=== PATIENT | female | born 1965 | race Caucasian/White ===

== ENCOUNTER → 2018-04-18 12:31 | Outpatient (CLI) | payer BC ==
[~2018-04-18 12:31] MED LIST: AMBIEN10 MG PO; LISINOP/HCTZ TAB 20-; XANAX1 MG PO
[2018-04-20 08:19] VITALS: BMI 28.5
== END | disposition home or self-care (01) ==
LOC: D.CT 12:31
DX: I71.2 Thoracic aortic aneurysm, without rupture (principal)

== ENCOUNTER 2018-04-20 07:22 | Outpatient (CLI) | payer BC ==
[~2018-04-20] VITALS: Ht 152.4 cm; Wt 66.4 kg
--- NOTE | ~2018-04-20 | EC ---
PATIENT:VARUN CHAVES DATE OF SERVICE: 04/20/18 SEX: F MEDICAL RECORD: [id number] DATE OF : 69 LOCATION:D.CAT AGE OF PATIENT: 52 ADMISSION DATE: 04/20/18 REFERRING PHYSICIAN: INTERPRETING PHYSICIAN: MANDEEP REEDER MD ECHOCARDIOGRAM REPORT ECHO CHARGES 4 ECHO COMPLETE Date: 04/20/18 CLINICAL DIAGNOSIS: ANGINA ECHOCARDIOGRAPHIC MEASUREMENTS (adult normal given) AC root (d.<3.7cm) 3.2 cm LV Septum d (<1.2 cm> 1.2 cm Valve Excursion 1.9 cm LV Septum (systole) 1.9 cm Left Atria (s.<4.0cm> 3.2 cm LVPW d(<1.2cm) 1.0 cm RV (d.<2.3cm) 2.4 cm LVPW (sytole) 1.9 cm LV diastole(<5.6CM) 4.5 cm MV E-F(>70mm/sec) cm LV systole 2.4 cm LVOT Diameter 1.7 cm MV exc.(>10mm) cm Est.ejection fraction (50-75%) % DOPPLER: LVIT cm/sec A 39.0 cm/sec E 51.0 cm/sec LA cm/sec RVSP 32.0 mmHg LVOT 94.0 cm/sec AOP1/2T m/s Asc. Ao 121 cm/sec RVOT 39.0 cm/sec RA cm/sec PA 75.0 cm/sec AV Gradient Peak 5.8 mmHg AV Mean 2.9 mmHg AV Area 1.7 cm MV Gradient Peak 2.5 mmHg MV Mean 0.75 mmHg MV Area cm COMMENTS: Oiler And Greaser: Agatha KABAOE Clinic Administrator: 1 Dr. Reeder TAPE# PACS Pericardial Effusion N DATE OF SERVICE: 04/20/2018 FINDINGS: 1. Left ventricular chamber size is within normal limits. Left ventricular systolic function is normal. Overall ejection fraction is estimated at 60%. 2. Left atrium, right atrium, and right ventricle chamber sizes are within normal limit. 3. Valvular structures have normal structure and motion. 4. 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 No other valvular insufficiency or stenosis. ECHOCARDIOGRAM REPORT [id number] VARUN CHAVES Pulmonary systolic pressure is estimated at 32 mmHg. 5. No evidence of pericardial effusion or left ventricular thrombus. TRANSINT:[id number] Voice Confirmation ID: [id number] DOCUMENT ID: [id number] MANDEEP REEDER MD at 8676 CC: [id number] DICTATION DATE: 04/20/18 1416 HOOKER UP: 04/20/18 1636 DEP CLI 04/20/18 [place] [id number] [place] [id number]
--- NOTE | ~2018-04-20 | OP ---
PATIENT NAME: VARUN CHAVES MEDICAL RECORD: [id number] :69 LOCATION:D.CAT ADMISSION DATE: SURGEON: MANDEEP GEORGE MD DATE OF OPERATION: 04/20/2018 PROCEDURES: 1. Left heart catheterization. 2. Selective coronary angiography. 3. Left ventriculogram. INDICATION: Chest pain of unknown etiology. PROCEDURE IN DETAIL: After informed consent was obtained with detailed description of risks and benefits as well as alternative therapies, the patient elected to proceed with angiogram and angioplasty. The right femoral area was prepped and draped in normal sterile fashion. Right femoral artery was cannulated via modified Seldinger technique with placement of 6-Bahraini sheath. All catheters were exchanged through this sheath. FINDINGS: Left ventriculogram performed in standard 30-degree MADSEN view reveals good cardiac wall motion throughout all segments. Overall ejection fraction estimated at 60%. SELECTIVE CORONARY ANGIOGRAPHY: Left main, left anterior descending, left circumflex, and right coronary are smooth-walled vessels with no angiographic evidence of coronary disease. OVERALL IMPRESSION: 1. No angiographic evidence of coronary disease. 2. Normal left heart pressures. 3. Normal left ventricular systolic function. Chest pain is noncardiac in etiology. No further cardiac workup needs to be ascertained. TRANSINT:[id number] Voice Confirmation ID: [id number] DOCUMENT ID: [id number] MANDEEP GEORGE MD at 1856 CC: [id number] DICTATION DATE: 04/20/18 1031 EDUCATIONAL SIGN LANGUAGE INTERPRETER: 04/20/18 1051 DEP CLI 04/20/18 [place] [id number] [place] [address]
--- NOTE | ~2018-04-20 | HEMODYNAMI ---
PATIENT:VARUN CHAVES MEDICAL RECORD: [id number] : 69 LOCATION:D.CAT ADMISSION DATE: 04/20/18 Generatedon:04/20/201810:01 Patient name: VARUN CHAVES Patient #: [id number] SSN: : Date of study: 04/20/2018 Page: Of Hemodynamic Procedure Report Patient Data Patient Demographics Procedure consent was obtained First Name: VARUN Gender: Female Last Name: ANDIE : 1965 [facility] Initial: AC Age: 52 year(s) Patient #: [id number] Race: Unknown Additional ID: [id number] Contact details Address: [address] [place] [address] State: [place] City: [place] Zip code: [address] Past Medical History Allergies Allergen Reaction Date Comments Reported Other allergy 04/20/2018 ASA, CODEINE Admission Admission Data Admission Date: 04/20/2018 Admission Time: 7:22 Height (in.): 60 BSA: 1.63 (m2) Height (cm.): 152.4 BMI: 28.51 (kg/m2) Weight (lbs.): 146 Weight (kg.): 66.22 Lab Results Lab Result Date: 04/20/2018 Lab Result Time: 0:00 Biochemistry Name Units Result Min Max BUN mg/dl 13 --(--*-)-- 7 18 Creatinine mg/dl 0.8 --(-*--)-- 0.6 1.3 CBC Name Units Result Min Max Hemoglobin g/dl 14.5 --(*---)-- 13.5 17.5 Platelets 10^3/l 163 --(*---)-- 130 400 Procedure Procedure Types Cath Procedure Diagnostic Procedure C [facility] w/Coronaries Procedure Description Procedure Date Procedure Date: 04/20/2018 Procedure Start Time: 9:49 Procedure End Time: 9:58 Procedure Staff Name Function Fahad Reeder MD Performing Physician Eyad Smaano RT Monitor Adri Melendez RT Scrchata High RN Nurse Procedure Data Cath Procedure Fluoroscopy Diagnostic fluoroscopy Total fluoroscopy Time: 1.1 time: 1.1 min min Diagnostic fluoroscopy Total fluoroscopy dose: 77 dose: 77 mGy mGy Contrast Material Contrast Material Type Amount (ml) Isovue 300 36 Entry Location Entry Primary Successful Side Size Upsize Upsize Entry Closure Succes sful Closure Location (Fr) 1 (Fr) 2 (Fr) Remarks Device Remarks Femoral Right 5 Fr Exoseal artery Estimated blood loss: 10 ml Procedure Complications No complications Procedure Medications Medication Administration Route Dosage Oxygen etCO2 Nasal cannula 2 l/min Heparin Flush Bag added to field 2 bags (1000units/500ml NS) 0.9% NaCl 100 ml/hr Fentanyl I.V. 50 mcg Versed I.V. 1 mg Fentanyl I.V. 50 mcg Versed I.V. 1 mg Fentanyl I.V. 50 mcg Versed I.V. 1 mg Fentanyl I.V. 50 mcg Versed I.V. 1 mg Hemodynamics Rest BSA: 1.63 (m2) HGB: 14.5 (g/dl) O2 Consumption: Estimated: 156.45 (ml/min) O2 Co nsumption indexed: Estimated:95.98 (ml/min/m) Heart Rate: 65 (bpm) Pressure Samples Time Site Value (mmHg) Purpose Heart Use Rate(bpm) 9:53 LV 70/19,24 Snapshot 71 9:54 AO 109/76(90) Snapshot 71 Snapshots Pre Cath Intra NCS Post Cath Vital Signs Time Heart Resp SPO2 etCO2 NIBP (mmHg) Rhythm Pain Sedation Rate (ipm) (%) (mmHg) Status Level (bpm) 9:36:10 69 17 98 0 122/94(112) NSR 0 (11) 10(A) , No pain 9:40:26 67 16 99 37.6 122/86(110) NSR 0 (11) 10(A) , No pain 9:44:42 65 16 89 0 110/80(91) NSR 0 (11) 10(A) , No pain 9:48:52 80 16 95 40.6 126/83(101) NSR 0 (11) 10(A) , No pain 9:53:08 125 16 95 42.2 110/85(102) NSR 0 (11) 9(A) , No pain 9:57:57 82 17 97 39.1 116/93(99) NSR 0 (11) 9(A) , No pain 10:00:31 89 17 96 40.6 163/146(155) NSR 0 (11) 9(A) , No pain Medications Time Medication Route Dose Verified Delivered Reason Notes Effec tiveness by by 9:38:15 Oxygen etCO2 2 Fahad Ga Per Nasal l/min Varinder High RN physician cannula 9:38:39 Heparin Flush added 2 Fahad Ga Per Bag to bags Varinder High RN physician (1000units/500ml field NS) 9:39:09 0.9% NaCl 100 Fahad Ga ml/hr Varinder High RN 9:46:36 Fentanyl I.V. 50 Fahad Ga for heather High RN sedation 9:46:42 Versed I.V. 1 mg Fahad Garzay for Varinder High RN sedation 9:49:03 Fentanyl I.V. 50 Fahadshelli Garzay for heather High RN sedation 9:49:09 Versed I.V. 1 mg Fahad Garzay for Varinder High RN sedation 9:51:54 Fentanyl I.V. 50 Fahad Garzay for heather High RN sedation 9:51:58 Versed I.V. 1 mg Fahad Garzay for Varinder High RN sedation 9:53:24 Fentanyl I.V. 50 Fahad Ga for heather High RN sedation 9:53:29 Versed I.V. 1 mg Fahad Garzay for Varinder High RN sedation Procedure Log Time Note 8:56:02 Patient Height : 60 inches 8:56:06 Patient Weight : 146 lbs 8:56:09 Signed procedure consent form obtained from patient. 8:56:12 Diagnostic Cath status Elective 8:59:48 Patient allergic to Other allergyASA, CODEINE 9:08:14 Time tracking: Regular hours (M-F 7:00 - 5:00) 9:08:19 Plan of Care:Hemodynamics will remain stable., Cardiac rhythm will remain stable., Comfort level will be maintained., Respiratory function will remain adequate., Patient/ family verbilizes understanding of procedure., Procedure tolerated without complication., Recovers from procedure without complications.. 9:08:56 H&P Date Dictated: 04/19/2018 Within 30 days and on chart., H&P Addendum completed by physician on day of procedure. (MUST COMPLETE FOR ALL OUTPATIENTS). 9:10:46 Ga High RN sent for patient. Start room use. 9:25:37 Patient received from Pre/Post Procedure Room to CCL 3 Alert and oriented. Tansferred to table in Supine position. 9:25:38 Warm blankets applied, and emma hugger turned on for patient comfort. 9:25:39 Correct patient and procedure confirmed by team. 9:25:40 ECG and BP/O2 sat monitors applied to patient. 9:35:09 Vital chart was started 9:38:15 Oxygen 2 l/min etCO2 Nasal cannula was administered by Ga High RN; Per physician; 9:38:39 Heparin Flush Bag (1000units/500ml NS) 2 bags added to field was administered by Ga High RN; Per physician; 9:38:48 Baseline sample Acquired. 9:38:54 Rhythm: sinus rhythm 9:38:55 Full Disclosure recording started 9:38:57 Pre-procedure instructions explained to patient. 9:38:57 Pre-op teaching completed and patient verbalized understanding. 9:38:59 Family in patients room. 9:39:00 Patient NPO since Midnight. 9:39:08 Is the patient allergic to Iodine/contrast media? No. 9:39:09 0.9% NaCl 100 ml/hr was administered by Ga High RN; ; 9:39:09 Is patient on blood thinner?No 9:39:16 Patient diabetic? No. 9:41:06 Patient not . Patient has had hysterectomy. 9:41:07 Patient not . Patient has had tubal. 9:41:09 Previous problem with sedation/anesthesia? No ? 9:41:10 Snore? Yes 9:41:12 Sleep apnea? No 9:41:13 Deviated septum? No 9:41:13 Opens mouth fully? Yes 9:41:14 Sticks out tongue? Yes 9:41:16 Airway obstruction? No ? 9:41:17 Dentures? No ? 9:41:21 Pre procedure: right dorsailis pedis pulse 1+ Palpable, but thready & weak; easily obliterated 9:42:22 Unable to go radial due to inability to palpate radial pulse. 9:42:31 IV patent on arrival in left hand with 0.9% NaCl at [facility]. 9:42:33 Lab results completed and on chart. 9:42:39 Right groin area was prepped with chlora-prep and draped in sterile fashion 9:42:40 Alarms reviewed by R. N. 9:42:40 Sharps counted by scrub and verified by R.N. 9:42:48 Use device set Femoral Dx 9:42:49 ACIST Manifold (44131) opened to sterile field. 9:42:50 ACIST Hand Control (13815) opened to sterile field. 9:42:51 Tegaderm 4 x 4 (1626W) opened to sterile field. 9:42:52 ACIST Syringe (73578) opened to sterile field. 9:42:53 Bag Decanter (2002S) opened to sterile field. 9:42:53 Medline Cath Pack ([id number]) opened to sterile field. 9:42:53 DIAGNOSTIC WIRE .035 260cm J wire (120918) opened to sterile field. 9:42:55 SHEATH 5FR Bokoshe ([id number]) opened to sterile field. 9:45:56 Lab Result : Hemoglobin 14.5 g/dl 9:45:56 Lab Result : Creatinine 0.8 mg/dl 9:45:56 Lab Result : BUN 13 mg/dl 9:45:56 Lab Result : Platelets 163 10^3/l 9:46:02 --------ALL STOP TIME OUT------ 9:46:02 Final Timeout: patient, procedure, and site verified with staff and physician. All members of the team are in agreement. 9:46:04 Right groin site verified by team. 9:46:07 Physical assessment completed. ASA score P 2 - A patient with mild systemic disease as per Fahad Reeder MD. 9:46:09 Sedation plan: IV Moderate Sedation Medication:Versed, Fentanyl 9:46:36 Fentanyl 50 mcg I.V. was administered by Ga High RN; for sedation; 9:46:42 Versed 1 mg I.V. was administered by Ga High RN; for sedation; 9:48:45 Zero performed for pressure channel P1 9:49:03 Fentanyl 50 mcg I.V. was administered by Ga High RN; for sedation; 9:49:09 Versed 1 mg I.V. was administered by Ga High RN; for sedation; 9:49:15 Procedure started. 9:49:19 Local anesthetic to right femoral artery with Lidocaine 2% by Fahad Reeder MD.INITIAL ACCESS ONLY 9:51:54 Fentanyl 50 mcg I.V. was administered by Ga High RN; for sedation; 9:51:58 Versed 1 mg I.V. was administered by Ga High RN; for sedation; 9:52:12 A 5 Fr sheath was inserted into the Right Femoral artery 9:52:16 DXT PIG 5fr opened to sterile field. 9:52:37 5fr DXT PIG advanced over the wire. 9:53:24 Fentanyl 50 mcg I.V. was administered by Ga High RN; for sedation; 9:53:29 Versed 1 mg I.V. was administered by Ga High RN; for sedation; 9:53:29 LV angiography performed. 9:53:30 LV gram done using MADSEN 9:53:35 EF : 60 % 9:53:38 Injector settings: Ml/sec: 10, Volume: 20, 9:53:40 Catheter removed. 9:53:41 DXT JL4 5fr opened to sterile field. 9:54:00 5fr DXT JL 4 advanced over the wire. 9:54:37 Catheter removed. 9:54:39 DXT 3DRC 5fr opened to sterile field. 9:55:02 5fr DXT 3DRC advanced over the wire. 9:55:35 RCA angiography performed. 9:55:36 Catheter removed. 9:55:39 EXOSEAL 5Fr (EX500) opened to sterile field. 9:55:51 Sheath removed intact; hemostasis achieved with Exoseal to the Right Femoral artery. 9:56:01 Procedure ended.(Physican Out) 9:56:28 Fluoroscopy time 01.10 minutes. 9:56:32 Fluoroscopy dose: 77 mGy 9:56:32 Flurop Dose total: 77 9:56:36 Contrast amount:Isovue 300 36ml. 9:56:40 Sharps counted by scrub and verified by R.N. 9:56:41 Insertion/operative site no bleeding no hematoma. 9:56:44 Post-op/insertion site Right Femoral artery dressed using a 4 x 4 and Tegaderm. 9:56:45 Post Procedure Pulses reassessed and unchanged 9:56:47 Post-procedure physical assessment completed. ASA score P 2 - A patient with mild systemic disease as per Fahad Reeder MD. 9:56:50 Post procedure rhythm: unchanged. 9:56:57 Estimated blood loss: 10 ml 9:56:59 Post procedure instruction explained to patient.Patient verbalizes understanding. 9:56:59 Patient needs reinforcement of post procedure teaching. 9:57:04 Procedure and supply charges have been captured, reviewed, submitted and are correct. 9:57:07 Procedure Complication : No complications 9:58:04 Vital chart was stopped 9:58:04 See physician's report for complete and final results. 9:58:10 Report given to Pre/Post Procedure Room. 9:58:13 Patient transfered to Pre/Post Procedure Room with Stretcher. 9:58:15 Procedure ended. 9:58:15 Full Disclosure recording stopped 10:01:29 End room use (Document Last) Device Usage Item Name Manufacture Quantity Catalog Hospital Part Current Minimal L ot# / Number Charge Number Stock Stock Serial# Code ACIST Acist 1 94715 190735 824662 163440 5 Manifold Medical (75015) Systems Inc ACIST Hand Acist 1 86698 080149 844142 344108 5 Control Medical (88030) Systems Inc Tegaderm 4 3M 1 1626W 255499 602799 307910 5 x 4 (1626W) ACIST Acist 1 43300 061091 073631 326809 20 Syringe Medical (27264) Systems Inc Bag Microtek 1 537999 93263 851460 5 Decanter Medical Inc. () Medline Medline 1 [id number] 085690 78030 833939 5 Cath Pack ([id number]) DIAGNOSTIC [place] 1 553762 391835 260005 599564 30 WIRE .035 260cm J wire (978495) SHEATH 5FR Terumo 1 VBD034 404029 702288 513482 40 Bokoshe (CTO477) DXT PIG 5fr Unknown 1 0 0 DXT JL4 5fr Unknown 1 0 0 DXT 3DRC Unknown 1 0 0 5fr EXOSEAL 5Fr Cardinal 1 EX500 287997 074665 159725 10 (EX500) Health Signature Audit [place] Stage Time Signature Unsigned Intra-Procedure 04/20/2018 Eyad Samano 10:01:44 AM RT(R) Signatures Monitor : Eyad Samano RT Signature : Date : Time : [address] [id number]
[2018-04-20] MEDS ORDERED: LISINOP/HCTZ TAB 20- (08:03)
[2018-04-20] MEDS ORDERED: AMBIEN10 MG PO (08:04)
[2018-04-20] MEDS ORDERED: XANAX1 MG PO (08:04)
[2018-04-20 08:19] VITALS: BP 117/82; Ht 152.4 cm; Wt 66.4 kg
[2018-04-20 08:33] LABS: BASOPHILS 0.5 % (0-2); EOSINOPHILS 3.2 % (0-7); HEMOGLOBIN 14.5 g/dL (12-16); IMMATURE GRANULOCYTES 0.2 % (0-5); LYMPHOCYTES 32.6 % (15-50); MCH 29.9 pg (26.0-34.0); MCHC 33.7 g/dL (31.0-37.0); MCV 88.7 fL (80.0-100.0); MEAN PLATELET VOLUME 10.3 fL (7.4-10.4); NEUTROPHILS 51.5 % (40-80); PLATELET COUNT 163 10x3/uL (130-400); RBC 4.85 10x6/uL (4.00-5.40); RDW 13.9 % (11.5-14.5); WBC 5.7 10x3/uL (4.8-10.8)
[2018-04-20 08:37] LABS: CALC OSMOLALITY 278 mosm/kg (275-300); CALCIUM 9.5 mg/dL (8.5-10.1); CHLORIDE - SERUM 103 mmol/L (98-107); CREATININE - SERUM 0.8 mg/dL (0.6-1.3); GLUCOSE 108 mg/dL (74-106); POTASSIUM - SERUM 3.5 mmol/L (3.5-5.1); SODIUM 139 mmol/L (136-145); UREA NITROGEN 13 mg/dL (7-18); eGFR NON AFRICAN AMERICAN 80 mL/min (90-120)
== END 2018-04-20 13:15 | disposition home or self-care (01) ==
LOC: D.CATH 07:22
PROVIDERS: Internal Medicine Interventional Cardiology
DX: R07.89 Other chest pain (principal); Z01.812 Encounter for preprocedural laboratory examination